=== PATIENT | female | born 1985 | race Two or more races ===

== ENCOUNTER 2019-01-18 17:58 | Emergency (ER) | payer MEDICAID ==
[~2019-01-18] VITALS: Ht 157.5 cm; Wt 62.6 kg
--- NOTE | 2019-01-18 18:15 | NUR ---
EPIGASTRIC PAIN W/ NAUSEA AND DIARRHEA SINCE WEDNESDAY. PATIENT A/OX4, BREATHING EVEN AND UNLABORED, NO SOB NOTED, NO EPISODE OF VOMITING AT THIS TIME. FAMILY AT BEDSIDE, KEPT COMFORTABLE. NO DISTRESS NOTED.
[2019-01-18 18:57] LABS: BASOPHILS # (AUTO) 0.1 /CMM (0.0-0.2); BASOPHILS % (AUTO) 0.8 % (0.0-2.0); EOSINOPHILS % (AUTO) 0.4 % (0.0-6.0); HEMATOCRIT 43 % (33-45); HEMOGLOBIN 14.8 g/dL (11.5-14.8); LYMPHOCYTES # (AUTO) 2.7 /CMM (0.8-4.8); LYMPHOCYTES % (AUTO) 27.4 % (20.0-44.0); MEAN CORPUSCULAR HGB CONC 35 g/dl (31.0-36.0); MEAN CORPUSCULAR VOLUME 91 fL (82-100); MONOCYTES # (AUTO) 0.8 /CMM (0.1-1.30); MONOCYTES % (AUTO) 8.1 % (2.0-12.0); NEUTROPHILS # (AUTO) 6.2 /CMM (1.8-8.9); NEUTROPHILS % (AUTO) 63.3 % (43.0-81.0); PLATELET COUNT (AUTO) 355 /CMM (150-450); RED BLOOD CELL COUNT(AUTO) 4.74 MIL/uL (4.0-5.2); WHITE BLOOD COUNT (AUTO) 9.8 K/uL (4.3-11.0)
[2019-01-18] MEDS ORDERED: MAG HYDROX/AL HYDROX/SIMETH 30 ML UDC PO ONE (19:00)
[2019-01-18] MEDS ORDERED: LIDOCAINE VISCOUS 2% UD 15 ML UDC MM ONE (19:00)
[2019-01-18] MEDS ORDERED: MAG HYDROX/AL HYDROX/SIMETH 30 ML UDC ONE (19:02)
[2019-01-18] MEDS ORDERED: LIDOCAINE VISCOUS 2% UD 15 ML UDC ONE (19:02)
[2019-01-18 19:04] LABS: CALCIUM, SERUM 8.9 mg/dL (8.5-10.1); CREATININE 0.8 mg/dL (0.6-1.3); POTASSIUM 3.6 mmol/L (3.5-5.1)
[2019-01-18 19:10] LABS: ALBUMIN 4.1 g/dL (3.4-5.0); BILIRUBIN,DIRECT 0.1 mg/dL (0.0-0.2); BILIRUBIN,TOTAL 0.2 mg/dL (0.2-1.0); TOTAL PROTEIN, SERUM 7.9 g/dL (6.4-8.2)
--- NOTE | 2019-01-18 19:54 | NUR ---
ER AT BEDSIDE TO RE-EVAL PT. PENDING DISPOSITION.
--- NOTE | 2019-01-18 19:58 | NUR ---
Patient discharged to home in stable condition. Written and verbal after care instructions given. Patient verbalizes understanding of instruction. ambulatory with a steady gait
[2019-01-18 19:59] VITALS: BP 135/67
== END 2019-01-18 20:00 | disposition home or self-care (01) ==
LOC: ER 17:58
DX: R10.13 Epigastric pain (principal)
CPT/HCPCS: 36415; 80048-TC; 80076-TC; 83690-TC; 84702-TC; 85025-TC

== ENCOUNTER 2019-10-18 19:31 | Emergency (ER) | payer MEDICAID ==
[~2019-10-18] VITALS: Ht 154.9 cm; Wt 63.5 kg
--- NOTE | 2019-10-18 20:10 | NUR ---
DINING ROOM COORDINATOR AT BEDSIDE FOR BLOOD DRAW
[2019-10-18 20:14] LABS: BASOPHILS # (AUTO) 0.1 /CMM (0.0-0.2); BASOPHILS % (AUTO) 0.5 % (0.0-2.0); EOSINOPHILS % (AUTO) 0.2 % (0.0-6.0); HEMATOCRIT 42 % (33-45); HEMOGLOBIN 14.5 g/dL (11.5-14.8); LYMPHOCYTES # (AUTO) 2.8 /CMM (0.8-4.8); LYMPHOCYTES % (AUTO) 22.3 % (20.0-44.0); MEAN CORPUSCULAR HGB CONC 34 g/dl (31.0-36.0); MEAN CORPUSCULAR VOLUME 92 fL (82-100); MONOCYTES # (AUTO) 0.8 /CMM (0.1-1.30); MONOCYTES % (AUTO) 6.1 % (2.0-12.0); NEUTROPHILS % (AUTO) 70.9 % (43.0-81.0); PLATELET COUNT (AUTO) 377 /CMM (150-450); WHITE BLOOD COUNT (AUTO) 12.7 K/uL (4.3-11.0)
[2019-10-18 20:21] LABS: POTASSIUM 3.6 mmol/L (3.5-5.1)
[2019-10-18] MEDS ORDERED: HYDROCODONE/APAP 5/325MG TABLET ONE (20:26)
[2019-10-18] MEDS ORDERED: HYDROCODONE/APAP 5/325MG TABLET PO ONE (20:30)
--- NOTE | 2019-10-18 20:51 | NUR ---
BIBS. TO ER BED 6. AAOX4. NOT IN RESO DISTRESS. AMBULATORY. C/O POSTERIOR NECK TIGHTNESS X 2 DAYS. PAIN IS RATE 5/10. ROM INTACT, ABLE TO MOVE NECK FREELY. MD WAS AT BEDSIDE FOR EVAL. ORDERS RECEIVED, NOTRED AND CARRIED OUT.
--- NOTE | 2019-10-18 21:12 | NUR ---
Patient discharged to home in stable condition. Written and verbal after care instructions given. Patient verbalizes understanding of instruction. Pt ambulatory with a steady gait
[2019-10-18 23:52] VITALS: BP 145/83
== END 2019-10-18 21:15 | disposition home or self-care (01) ==
LOC: ER 19:31
DX: S16.1XXA Strain of muscle, fascia and tendon at neck level, initial encounter (principal); X58.XXXA Exposure to other specified factors, initial encounter; Y93.89 Activity, other specified; Y92.89 Other specified places as the place of occurrence of the external cause; Y99.8 Other external cause status
CPT/HCPCS: 36415; 72125-TC; 80048-TC; 85025-TC